=== PATIENT | male | born 1950 | race Caucasian/White ===

== ENCOUNTER 2017-03-09 07:28 | Day surgery (SDC) | payer MEDICARE, OTHER ==
[~2017-03-09 07:28] MED LIST: Bupivacaine 0.5% 50 ML MDV ONE; Lidocaine 1% with EPINEPHrine 1:100,000 50 ML MDV ONE
[2017-03-09] MEDS ORDERED: Acetaminophen 500 MG Tab PO ONE (07:33)
[2017-03-09] MEDS: Dextrose 5%-Lactated Ringers 1,000 ML IV SCH ×3 (08:12→21:38)
[2017-03-09] MEDS ORDERED: Propofol 200 MG/20 ML SDV ONE ×3 (08:27→10:07)
[2017-03-09] MEDS ORDERED: fentaNYL 100 MCG/2 ML SDV ONE ×2 (08:28→10:53)
[2017-03-09] MEDS ORDERED: Midazolam 1 MG/ML 2 ML SDV ONE (08:28)
[2017-03-09] MEDS ORDERED: ceFAZolin 2 GM in Premix Bag 1 BAG IV ONE (09:00)
[2017-03-09] MEDS ORDERED: Ketorolac 60 MG/2 ML SDV ONE (09:39)
[2017-03-09] MEDS ORDERED: 50% Dextrose in Water 50 ML Syringe IVPUSH PRN (11:23)
[2017-03-09] MEDS ORDERED: Glucagon,Human Recombinant 1 MG Vial IM PRN (11:23)
[2017-03-09] MEDS ORDERED: Glucose Gel 15 GM in 37.5 GM Tube PO PRN (11:23)
[2017-03-09] MEDS ORDERED: Insulin Aspart 100 Units/ML 3 ML Pen SUBCUT ONE (11:30)
[2017-03-09] MEDS ORDERED: Ondansetron 4 MG/2 ML SDV IVPUSH PRN (12:32)
[2017-03-09] MEDS ORDERED: Acetaminophen 325 MG Tab PO PRN (12:34)
[2017-03-09] MEDS ORDERED: Acetaminophen/oxyCODONE 325-5 MG Tab PO PRN (12:34)
[2017-03-09] MEDS ORDERED: Pantoprazole 40 MG Vial IV ONE (14:00)
[2017-03-09] MEDS: ceFAZolin 2 GM in Sodium Chloride 0.9% 50 ML IV SCH (15:33)
[2017-03-09] MEDS: Ibuprofen 600 MG Tab PO SCH ×2 (17:05→22:44)
[2017-03-09] MEDS: Insulin Aspart 100 Units/ML 3 ML Pen SUBCUT PRN (21:18)
[2017-03-10] MEDS: ceFAZolin 2 GM in Sodium Chloride 0.9% 50 ML IV SCH ×2 (00:41→07:57)
[2017-03-10] MEDS: Ibuprofen 600 MG Tab PO SCH ×2 (05:00→06:02)
[2017-03-10 07:57] VITALS: BP 137/75
[2017-03-10] MEDS: Insulin Aspart 100 Units/ML 3 ML Pen SUBCUT PRN (08:01)
[2017-03-10] MEDS ORDERED: Aspirin 81 MG Tab.EC PO SCH (09:00)
[2017-03-10] MEDS ORDERED: Pantoprazole 40 MG Vial IV ONE (09:00)
--- NOTE | 2017-03-10 22:31 | DISCH ---
ADMISSION DIAGNOSIS: Bilateral inguinal hernias. DISCHARGE DIAGNOSES: Bilateral inguinal hernia repair with mesh and bilateral division of inguinal nerves for bilateral inguinal hernia, incarcerated right internal hernia and non- incarcerated left inguinal hernia and bilateral inguinal nerve division for scar entrapment. Date of surgery 03/09/2017, Iggy Mead MD. HISTORY: Kike Truong is a 66-year-old male with bilateral inguinal hernias. After preoperative evaluation and discussion of possible risks and possible complications, he wished to proceed with surgical procedure. HOSPITAL COURSE: Kike had his surgery on 03/09/2017, on postoperative day #1, he was ready to be discharged. Pain was managed, activity good, vital signs stable and oral intake and output adequate. PHYSICAL EXAMINATION: GENERAL: Kike Truong is a 66-year-old male. VITAL SIGNS: Height is 5 feet 7 inches. Weight is 158 pounds. TPR 99.2, 66, 20. Blood pressure 152/71. HEENT: Negative. NECK: Supple. HEART: Regular rate and rhythm. LUNGS: Clear. ABDOMEN: Dressings dry and intact. Athletic supporter is on. EXTREMITIES: Without peripheral edema. DISPOSITION: Discharged to home. CONDITION: Stable and improving. FOLLOWUP: Followup appointment with Iggy Mead MD on 03/17/2017 at 8:15 a.m. HOME MEDICATIONS: 1. Tylenol 650 mg oral q.4 hours p.r.n. pain. 2. Percocet 5/325 mg one to two oral q.4 hours p.r.n. pain #30. 3. Ibuprofen 600 mg q.6 hours #40 to take with food. He is to resume his home medication of aspirin 81 mg daily, Trulicity 0.75 subcu every 7 days, and Viagra 50 mg oral daily. DISCHARGE DIET: Usual diet as tolerated. Drink 8 to 10 glasses of water a day. ACTIVITY: No lifting greater than 10 pounds for 6 weeks. Driving, do not drive for 2 weeks and while on pain medication. Shower/bathing, may shower. DISCHARGE INSTRUCTIONS: Notify provider if any increased pain, swelling, redness or drainage from incision. Wound incision care, keep site clean and dry. Wear athletic supporter for 2 weeks. Special instruction; use incentive spirometer 10 times every hour while awake for 1 week.
--- NOTE | 2017-03-14 14:40 | OR ---
DATE OF PROCEDURE: 03/09/2017 PREOPERATIVE DIAGNOSIS: Bilateral inguinal hernias. POSTOPERATIVE DIAGNOSES: 1. Incarcerated right indirect inguinal hernia. 2. Non-incarcerated direct left inguinal hernia. 3. Ilioinguinal nerves bilaterally at risk for scar entrapment. OPERATIVE PROCEDURES: 1. Repair of incarcerated right inguinal hernia with mesh plug technique (57692). 2. Repair of non-incarcerated left inguinal hernia with mesh plug technique (67089). 3. Division of left ilioinguinal nerve (30442). 4. Division of right ilioinguinal nerve (92239). ANESTHESIA: Local plus IV sedation. ASSISTANTS: Patricia Alcala PA-C, and LISA Hoyt3. INDICATIONS FOR PROCEDURE: This is a 66-year-old presenting with bilateral inguinal hernias with the right one being the most symptomatic. Plan is to proceed with bilateral inguinal hernia repair with mesh plug technique. The idea that this mesh technique often will result in entrapment of the ilioinguinal nerves by inflammation and scar was reviewed and that we often will divide those nerves resulting in area of anesthesia around the lower inguinal area, thus preventing problems with chronic pain related to the entrapment of the nerves by scar. Potential risks per se including bleeding, infection, injury to underlying viscera, possible recurrence of the hernia were all reviewed, and the patient wishes to proceed. DETAILS OF PROCEDURE: The patient was taken to the operating room and placed in a supine position. After IV sedation was administered, the abdomen and groin areas were prepped and draped. Beginning on the right side, the area was anesthetized with 1% lidocaine mixed with Marcaine, and a standard inguinal incision was made and carried down through the skin and subcutaneous tissue, through the external oblique aponeurosis. The patient was noted to have on this side an incarcerated right inguinal hernia. This contained what appeared to be some omentum. This was then reduced and the cremasteric muscle fibers divided allowing dissection of the hernia sac back to the level of the internal ring. It was then turned in at that level and a large mesh plug was then placed into the defect. It was affixed medially to Ramos ligament with titanium tacking screws and then to the underside of the conjoint tendon medially, superiorly, and laterally with horizontal mattress sutures of 0 Vicryl stitch. The flat portion of the mesh plug system was then placed over the inguinal floor. This did overlap the area of the ilioinguinal nerve. This was thus divided with a portion of the nerve being sent for histologic evaluation was in the far edge of the incision laterally. The flat portion of the mesh plug system was then sutured laterally to the cord structures with a 4-0 Vicryl stitch and then affixed to pubic tubercle with titanium tacking screw. The cord structures were then placed over this, and the external oblique aponeurosis approximated with some 4-0 Vicryl stitch as was the Keshawn's fascia, and the skin was closed with 4-0 Vicryl subcuticular stitch. Attention was then taken to the left side. This area was similarly anesthetized and an identical incision and initial exposure was undertaken. On this side, the patient was noted to have a broad-based non-incarcerated direct inguinal hernia. Dissection of the cord structures revealed no evidence of indirect hernia on this side. The transversalis fascia over the direct hernia was then incised allowing an extra large mesh plug to be placed into the defect. This was affixed to Armos ligament inferiorly with titanium tacking screws, then to the underside of the conjoint tendon medially, laterally, and superiorly with 0 Vicryl horizontal mattress sutures. The ilioinguinal nerve on this side was likewise felt to be at risk for nerve entrapment with a flat portion of the mesh plug system being placed and it therefore was also divided. The remainder of the procedure was identical to the right side. The patient was taken to the recovery room in a satisfactory condition after Steri-Strips were applied to the incisions. Physician veterinary technician assistant, Patricia Alcala, played an essential role in assisting in this case, helping to retract structures as needed, positioning the patient as well as suturing and cutting sutures when indicated. Her presence improved patient safety and decreased the operative time. Iggy Mead MD /[id number]
== END 2017-03-10 08:55 | disposition home or self-care (01) ==
LOC: JP.SDS 07:28 → JP.MS 11:00 → JP.SDS 03-10 08:55
PROVIDERS: ATTEND Surgery
DX: K40.30 Unilateral inguinal hernia, with obstruction, without gangrene, not specified as recurrent (principal); K40.90 Unilateral inguinal hernia, without obstruction or gangrene, not specified as recurrent; G57.83 Other specified mononeuropathies of bilateral lower limbs; E11.9 Type 2 diabetes mellitus without complications; Z79.82 Long term (current) use of aspirin; Z79.899 Other long term (current) drug therapy
CPT/HCPCS: 36415; 49505; 49507; 64772; 80053; 82962; 83735; 84100; 85027; 94762; A9270; C1781; C9113; J0690; J1885; J2250; J2704; J3010; J7042; J7050; 88302

== ENCOUNTER 2018-08-22 13:36 | Emergency (ER) | payer MEDICARE, BC ==
[2018-08-22 13:53] VITALS: BP 139/75; PULSE 70
[2018-08-22] MEDS ORDERED: Cyclobenzaprine 10 MG Tab PO ONE (13:56)
--- NOTE | 2018-08-22 13:59 | EDM.PDOC ---
ED HPI GENERAL MEDICAL PROBLEM - General Chief Complaint: Allergic Reaction Stated Complaint: REACTION TO BEE STING Time Seen by Provider: 08/22/18 13:52 Source of Information: Reports: Patient, RN Notes Reviewed History Limitations: Reports: No Limitations - History of Present Illness INITIAL COMMENTS - FREE TEXT/NARRATIVE: 67-year-old gentleman presents emergency department today concerned about allergic reaction from bee sting, he states he was stung by a bee approximately 5 days ago but he's having some issues where he gets shooting pains down the right side of his neck into his chest when he moves his neck into a certain position. He has tried ibuprofen with some relief no other symptoms nausea vomiting shortness of breath no difficulty swallowing Neck Pain Score (Numeric/FACES): 5 - Related Data Allergies Allergy/AdvReac Type Severity Reaction Status Date / Time No Known Allergies Allergy Verified 08/22/18 14:04 Home Meds: Home Meds Aspirin [Adult Low Dose Aspirin EC] 81 mg PO DAILY 03/09/17 [History] Dulaglutide [Trulicity] 0.75 mg SUBCUT Q7D 03/09/17 [History] Sildenafil [Viagra] 50 mg PO DAILY 03/09/17 [History] Acetaminophen [Tylenol] 650 mg PO Q4H PRN tablet 03/10/17 [Rx] Ibuprofen [IJD: Ibuprofen] 600 mg PO Q6H #40 tablet 03/10/17 [Rx] Past Medical History HEENT History: Reports: Hard of Hearing Gastrointestinal History: Reports: Other (See Below) Other Gastrointestinal History: bilat inguinal hernias Musculoskeletal History: Reports: Other (See Below) Other Musculoskeletal History: back injury 1 yr ago - fell from scaffolding Neurological History: Reports: Other (See Below) Other Neuro History: "brain bleed" after fell from scaffolding Endocrine/Metabolic History: Reports: Diabetes, Type II - Infectious Disease History Infectious Disease History: Reports: Chicken Pox - Past Surgical History HEENT Surgical History: Reports: Cataract Surgery GI Surgical History: Reports: Colonoscopy Social & Family History - Family History Family Medical History: Noncontributory - Caffeine Use Caffeine Use: Reports: Coffee ED ROS ALLERGIC REACTION - Review of Systems Review Of Systems: See Below Constitutional: Reports: No Symptoms HEENT: Reports: No Symptoms Respiratory: Reports: No Symptoms Cardiovascular: Reports: Chest Pain GI/Abdominal: Reports: No Symptoms Musculoskeletal: Reports: Neck Pain ED EXAM GENERAL NO PERIP PULSE - Physical Exam Exam: See Below Text/Narrative:: Examination of the neck supple no thyromegaly no tracheal deviation cervical nodes subclavicular nodes nontender no palpable lymphadenopathy noted examination the posterior neck there is no spinal tenderness no paraspinal tenderness he is point tender right side of the neck just anterior to the clavicle insertion Exam Limited By: No Limitations General Appearance: Alert, WD/WN, No Apparent Distress Throat/Mouth: Normal Inspection, Normal Lips, Normal Teeth, Normal Gums, Normal Oropharynx, Normal Voice, No Airway Compromise Head: Atraumatic, Normocephalic Respiratory/Chest: No Respiratory Distress, Lungs Clear, Normal Breath Sounds, No Accessory Muscle Use, Chest Non-Tender Cardiovascular: Regular Rate, Rhythm, No Murmur Course - Vital Signs Last Recorded V/S: Last Vital Signs Temp 97.3 F 08/22/18 14:09 Pulse 70 08/22/18 14:09 Resp 18 08/22/18 14:09 BP 139/75 08/22/18 14:09 Pulse Ox 94 L 08/22/18 14:09 - Orders/Labs/Meds Meds: Medications Discontinued Medications Generic Name Dose Route Start Last Admin Trade Name Freq PRN Reason Stop Dose Admin Cyclobenzaprine HCl 10 mg 08/22/18 13:56 08/22/18 14:19 Flexeril PO 08/22/18 13:57 10 mg ONETIME ONE Administration Departure - Departure Time of Disposition: 14:24 (Insurance a virus) Disposition: Home, Self-Care 01 Condition: Fair Clinical Impression: Neck strain Qualifiers: Encounter type: initial encounter Qualified Code(s): S16.1XXA - Strain of muscle, fascia and tendon at neck level, initial encounter - Discharge Information Referrals: Jerzy Ross Sr, MD [Primary Care Provider] - Forms: ED Department Discharge Additional Instructions: Use ibuprofen as needed for pain control, use the Flexeril as needed for muscle relaxants, Please followup with your primary care provider in 3-5 days if not better, please call return to the emergency department with worsening of symptoms. - Assessment/Plan Plan: Assessment Acuity = acute Site and laterality = neck strain Etiology = unknown etiology Manifestations = none Location of injury = Home Lab values = none Plan He had some improvement with Flexeril provided in the ED prescription written for Flexeril 10 mg by mouth 3 times a day when necessary follow-up primary care 3-5 days if no better This note was dictated using [employer] recognition software please call with any questions on syntax or grammar.
== END 2018-08-22 14:30 | disposition home or self-care (01) ==
LOC: JP.ED 13:36
DX: S16.1XXA Strain of muscle, fascia and tendon at neck level, initial encounter (principal); E11.9 Type 2 diabetes mellitus without complications; Z79.82 Long term (current) use of aspirin; Z79.899 Other long term (current) drug therapy; X58.XXXA Exposure to other specified factors, initial encounter
CPT/HCPCS: 99282; A9270; 99283